=== PATIENT | male | born 1990 | race Caucasian/White ===

== ENCOUNTER 2023-01-03 19:20 | Emergency (ER) | payer BC ==
[2023-01-03 19:47] VITALS: BP 118/60; PULSE 65; RESP 18; TEMP 98.2; BMI 30.7
[2023-01-03] MEDS ORDERED: ACETAMINOPHEN 500 MG TABLET (FP) PO ONE (20:15)
[2023-01-03] MEDS ORDERED: ACETAMINOPHEN 325 MG TABLET (FP) ONE (20:18)
[2023-01-03] MEDS ORDERED: SULFAMETHOXAZOLE/TRIMETHOPRIM 800MG/160MG D.S. TABLET PO ONE (21:38)
[2023-01-03] MEDS ORDERED: SULFAMETHOXAZOLE/TRIMETHOPRIM 800MG/160MG D.S. TABLET ONE (21:44)
== END 2023-01-03 22:00 | disposition home or self-care (01) ==
LOC: JER 19:20
PROC: 0H9BXZZ Drainage of Right Upper Arm Skin, External Approach (ICD-10-PCS; principal; 2023-01-03)
DX: L02.411 Cutaneous abscess of right axilla (principal); M79.621 Pain in right upper arm; R22.31 Localized swelling, mass and lump, right upper limb; L53.9 Erythematous condition, unspecified
CPT/HCPCS: 76604; 99284-25

== ENCOUNTER 2023-07-09 09:17 | Emergency (ER) | payer BC ==
[2023-07-09 09:29] VITALS: BP 129/76; PULSE 73; RESP 18; TEMP 98; BMI 27.8
[2023-07-09] MEDS ORDERED: KETOROLAC TROMETHAMINE 30 MG/1 ML VIAL ONE (10:15)
[2023-07-09] MEDS ORDERED: METOCLOPRAMIDE HCL INJECTION 10 MG/2 ML VIAL ONE (10:15)
[2023-07-09] MEDS: KETOROLAC TROMETHAMINE 30 MG/1 ML VIAL IVPUSH ONE (10:20)
[2023-07-09] MEDS: SODIUM CHLORIDE 1,000 ML IV STA (10:23)
[2023-07-09] MEDS: METOCLOPRAMIDE HCL INJECTION 10 MG/2 ML VIAL IVPUSH ONE (10:24)
[2023-07-09 10:31] LABS: PH,URINE 5.5 (5.0-8.0); URINE APPEARANCE CLEAR; URINE BILIRUBIN NEGATIVE (NEGATIVE); URINE COLOR YELLOW; URINE GLUCOSE (UA) NEGATIVE (NEGATIVE); URINE KETONE NEGATIVE (NEGATIVE); URINE LEUK ESTERASE NEGATIVE (NEGATIVE); URINE NITRITE NEGATIVE (NEGATIVE); URINE PROTEIN NEGATIVE (NEGATIVE)
[2023-07-09 10:33] LABS: BASO % 0.5 % (0-2.0); HEMATOCRIT 40.1 % (35.4-49); HEMOGLOBIN 14.2 GM/dL (11.7-16.9); LYMPH % 24.6 % (8-40); MCH 30.7 pg (25.7-33.7); MCHC 35.4 g/dl (32.0-35.9); MEAN CELL VOLUME 86.7 fl (80-96); MEAN PLT VOLUME 7.6 fl (7.5-11.1); MONO % 7.1 % (3.8-10.2); NEUT % 65.8 % (42.8-82.8); PLATELET COUNT 231 10^3/uL (134-434); RBC 4.63 M/mm3 (4.00-5.60); RDW 12.7 % (11.9-15.9); WHITE BLOOD COUNT 8.6 K/mm3 (4.0-10.0)
[2023-07-09 11:02] LABS: ALBUMIN 4.1 g/dl (3.4-5.0); BLOOD UREA NITROGEN 13.3 mg/dL (7-18)
[2023-07-09 11:05] LABS: CREATININE 0.8 mg/dL (0.55-1.3)
[2023-07-09 11:06] LABS: BILIRUBIN,TOTAL 1.1 mg/dL (0.2-1); TOT PROT 7.4 g/dl (6.4-8.2)
== END 2023-07-09 11:59 | disposition home or self-care (01) ==
LOC: JER 09:17
PROC: 3E0303Z Introduction of Anti-inflammatory into Peripheral Vein, Open Approach (ICD-10-PCS; principal; 2023-07-09)
PROC: 3E030GC Introduction of Other Therapeutic Substance into Peripheral Vein, Open Approach (ICD-10-PCS; 2023-07-09)
PROC: 3E0337Z Introduction of Electrolytic and Water Balance Substance into Peripheral Vein, Percutaneous Approach (ICD-10-PCS; 2023-07-09)
DX: B34.9 Viral infection, unspecified (principal); R51.9 Headache, unspecified; R19.7 Diarrhea, unspecified; R11.0 Nausea; Z20.822 Contact with and (suspected) exposure to COVID-19
CPT/HCPCS: 0241U-QW; 36415; 80053; 81003; 85025; 87086; 99284-25

== ENCOUNTER 2023-12-15 08:36 | Emergency (ER) | payer BC ==
[2023-12-15 08:46] VITALS: BP 126/76; PULSE 72; RESP 17; TEMP 97.9; BMI 30.2
[2023-12-15 19:34] LABS: HIV INTERPRETATION NEGATIVE (NEGATIVE)
== END 2023-12-15 09:50 | disposition home or self-care (01) ==
LOC: JERFT 08:36
DX: N48.29 Other inflammatory disorders of penis (principal)
CPT/HCPCS: 36415; 86803; 87389; 99283-25